=== PATIENT | female | born 1980 | race Caucasian/White ===

== ENCOUNTER 2016-11-15 12:28 | Emergency (ER) | payer OTHER ==
[~2016-11-15] VITALS: Ht 167.6 cm; Wt 80.6 kg
[~2016-11-15 12:28] MED LIST: BENZ1GEL11 TOPICAL; FLUO0.05 TOPICAL; KETO2AER3; OMEP40CA2 PO; ZYRT10CA PO
[2016-11-15 12:31] VITALS: BP 131/87; PULSE 100; RESP 16; TEMP 98; O2SAT 98
--- NOTE | 2016-11-15 13:07 | PD ---
HPI Chief Complaint: GI Complaint Time Seen by Provider: 12:40 Travel History International Travel<30 days: No Contact w/Intl Traveler<30days: No Traveled to known affect area: No History of Present Illness HPI 36-year-old female complains of abdominal pain with nausea vomiting diarrhea. Patient states that she started feeling lightheaded with nausea and about 2 weeks ago. Patient started having reflux symptoms subsequently with acid reflux and tobacco throat. Patient started having burning pain on the lower abdomen area for the past 5 days. Patient states that she has some reflux symptoms with burning sensation up to the chest area. Patient started having low back pain and poor appetite for the past 5 days. Patient denies any dysuria or frequency. Patient denies any vaginal discharge or bleeding. Patient denies fever chills. Patient status post tubal ligation, cholecystectomy and appendectomy. Patient states that she has history of abnormal Pap smear a year ago. PFSH Past Medical History Hx Anticoagulant Therapy: No Chemotherapy: No Cerebrovascular Accident: No Diabetes: No Diminished Hearing: No GERD: Yes Respiratory: No ?: Not LMP: 11/05/2016 Past Surgical History Appendectomy: Yes Section: Yes (x 4) Cholecystectomy: Yes Hysterectomy: No Social History Alcohol Use: Yes (occas) Tobacco Use: Yes (1ppd) Substance Use: No Allergies-Medications (Allergen,Severity, Reaction): Coded Allergies: Cefzil (Verified Allergy, Intermediate, vomiting, 11/15/16) Erythromycin (Verified Allergy, Intermediate, vomiting, 11/15/16) Ibuprofen (Verified Allergy, Intermediate, hives, 11/15/16) Penicillin (Verified Allergy, Intermediate, hives, 11/15/16) Sulfa (Verified Allergy, Unknown, skin ulcers, 11/15/16) Reported Meds & Prescriptions Reported Meds & Active Scripts Active No Active Prescriptions or Reported Medications Review of Systems General / Constitutional: No: Fever Eyes: No: Visual changes HENT: No: Headaches Cardiovascular: No: Chest Pain or Discomfort Respiratory: No: Shortness of Breath Gastrointestinal: Positive: Nausea, Vomiting, Diarrhea, Abdominal Pain Genitourinary: No: Dysuria Musculoskeletal: No: Pain Skin: No Rash Neurologic: No: Weakness Psychiatric: No: Depression Endocrine: No: Polydipsia Hematologic/Lymphatic: No: Easy Bruising Physical Exam Narrative GENERAL: Well-nourished, well-developed patient. SKIN: Focused skin assessment warm/dry. HEAD: Normocephalic. EYES: No scleral icterus. No injection or drainage. NECK: Supple, trachea midline. No JVD or lymphadenopathy. CARDIOVASCULAR: Regular rate and rhythm without murmurs, gallops, or rubs. RESPIRATORY: Breath sounds equal bilaterally. No accessory muscle use. GASTROINTESTINAL: Abdomen soft, nondistended. Patient has mild tenderness on palpation lower abdomen. No rebound tenderness. No mass. MUSCULOSKELETAL: No cyanosis, or edema. BACK: Nontender without obvious deformity. No CVA tenderness. Data Data Last Documented VS Vital Signs Date Time Temp Pulse Resp B/P Pulse Ox O2 Delivery O2 Flow Rate FiO2 11/15/16 13:25 98 Room Air 11/15/16 12:31 98.0 100 16 131/87 Orders Ed Urine Pregnancytest Poc (11/15/16 12:56) Complete Blood Count With Diff (11/15/16 12:56) Comprehensive Metabolic Panel (11/15/16 12:56) Prothrombin Time / Inr (Pt) (11/15/16 12:56) Act Partial Throm Time (Ptt) (11/15/16 12:56) Lipase (11/15/16 12:56) Urinalysis - C+S If Indicated (11/15/16 12:56) Ct Abd/Pel W Iv Contrast(Rout) (11/15/16 12:56) Iv Access Insert/Monitor (11/15/16 12:56) Ecg Monitoring (11/15/16 12:56) Oximetry (11/15/16 12:56) Iohexol 350 Inj (Omnipaque 350 Inj) (11/15/16 13:33) Labs Laboratory Tests Test 11/15/16 13:05 White Blood Count 13.6 TH/MM3 Red Blood Count 4.63 MIL/MM3 Hemoglobin 14.3 GM/DL Hematocrit 41.0 % Mean Corpuscular Volume 88.6 FL Mean Corpuscular Hemoglobin 31.0 PG Mean Corpuscular Hemoglobin 35.0 % Concent Red Cell Distribution Width 12.0 % Platelet Count 293 TH/MM3 Mean Platelet Volume 9.5 FL Neutrophils (%) (Auto) 64.0 % Lymphocytes (%) (Auto) 27.4 % Monocytes (%) (Auto) 6.7 % Eosinophils (%) (Auto) 1.4 % Basophils (%) (Auto) 0.5 % Neutrophils # (Auto) 8.8 TH/MM3 Lymphocytes # (Auto) 3.7 TH/MM3 Monocytes # (Auto) 0.9 TH/MM3 Eosinophils # (Auto) 0.2 TH/MM3 Basophils # (Auto) 0.1 TH/MM3 CBC Comment DIFF FINAL Differential Comment Prothrombin Time 11.4 SEC Prothromb Time International 1.0 RATIO Ratio Activated Partial 31.7 SEC Thromboplast Time Urine Collection Type CLEAN CATCH Urine Color YELLOW Urine Turbidity CLEAR Urine pH 6.0 Urine Specific [place] 1.010 Urine Protein NEG mg/dL Urine Glucose (UA) NEG mg/dL Urine Ketones TRACE mg/dL Urine Occult Blood NEG Urine Nitrite NEG Urine Bilirubin NEG Urine Leukocyte Esterase NEG Urine WBC 0-2 /hpf Urine Squamous Epithelial 6-8 /hpf Cells Microscopic Urinalysis Comment CULT NOT INDICATED Urine Collection Time 13:05 Sodium Level 139 MEQ/L Potassium Level 3.7 MEQ/L Chloride Level 107 MEQ/L Carbon Dioxide Level 24.7 MEQ/L Anion Gap 7 MEQ/L Blood Urea Nitrogen 10 MG/DL Creatinine 0.76 MG/DL Estimat Glomerular Filtration 87 ML/MIN Rate Random Glucose 85 MG/DL Calcium Level 8.8 MG/DL Total Bilirubin 0.8 MG/DL Aspartate Amino Transf 16 U/L (AST/SGOT) Alanine Aminotransferase 27 U/L (ALT/SGPT) Alkaline Phosphatase 69 U/L Total Protein 7.8 GM/DL Albumin 3.8 GM/DL Lipase 159 U/L [facility] Medical Decision Making Medical Screen Exam Complete: Yes Emergency Medical Condition: Yes Interpretation(s) 1350 p.m. CBC WBC 13.6. Normal differential. CMP within normal limit. UA is negative. CT scan abdomen pelvis negative acute pathology. Differential Diagnosis Differential diagnosis including gastroenteritis, gastritis, PUD, pancreatitis, colitis, UTI, pyelonephritis, cervicitis. Narrative Course 36-year-old female with low abdominal pain, nausea vomiting diarrhea. Diagnosis Primary Impression: Abdominal pain Qualified Code: R10.30 - Lower abdominal pain Additional Impression: Gastroenteritis Patient Instructions: General Instructions Additional Instructions: Take medication as needed. Follow-up with personal physician and GI specialist. Return if persistent problem or worse. Med/Other Pt SpecificInfo: Prescription(s) given Scripts Dicyclomine (Bentyl)10 Mg Cap10 Mg PO TID PRN (PAIN SCALE 1 TO 10) #21 CAP Ref 0 Prov:Nicola Barriga MD 11/15/16 Ondansetron Odt (Zofran Odt)4 Mg Tab4 Mg SL Q6HR PRN (Nausea/Vomiting) #10 TAB Prov:Nicola Barriga MD 11/15/16 Pantoprazole (Protonix)20 Mg Tab20 Mg PO DAILY #30 TAB Prov:Nicola Barriga MD 11/15/16 Disposition: 01 DISCHARGE HOME Condition: Stable Nicola Barriga MD November 15, 2016 13:07
[2016-11-15 13:14] LABS: BLOOD, URINE NEG (NEG); GLUCOSE,URINE NEG (NEG); KETONE, URINE TRACE mg/dL (NEG); NITRITE,URINE NEG (NEG)
[2016-11-15 13:21] LABS: AUTOMATED NEUTROPHIL # 8.8 TH/MM3 (1.8-7.7); BASOPHIL # 0.1 TH/MM3 (0-0.2); BASOPHIL % 0.5 % (0.0-2.0); EOSINOPHIL # 0.2 TH/MM3 (0-0.4); EOSINOPHIL % 1.4 % (0.0-4.0); HEMO FLAGS DIFF FINAL; LYMPH % 27.4 % (9.0-44.0); LYMPHOCYTE # 3.7 TH/MM3 (1.0-4.8); MEAN CELL VOLUME 88.6 FL (80.0-100.0); MONO % 6.7 % (0.0-8.0); PLATELET COUNT 293 TH/MM3 (150-450); RED BLOOD COUNT 4.63 MIL/MM3 (4.00-5.30); WHITE BLOOD COUNT 13.6 TH/MM3 (4.0-11.0)
[2016-11-15 13:22] LABS: COMMENT (UR) CULT NOT INDICATED; CULTURE IF INDICATED CULT NOT INDICATED; METHOD OF COLLECTION CLEAN CATCH; URINE COLOR YELLOW (YELLW/STRAW); WBC, URINE 0-2 /hpf (0-5)
[2016-11-15 13:24] LABS: CHLORIDE 107 MEQ/L (98-107); POTASSIUM 3.7 MEQ/L (3.5-5.1); SODIUM (NA) 139 MEQ/L (136-145)
[2016-11-15 13:25] VITALS: O2SAT 98
[2016-11-15 13:28] LABS: ANION GAP 7 MEQ/L (5-15); BICARBONATE 24.7 MEQ/L (21.0-32.0); BLOOD UREA NITROGEN 10 MG/DL (7-18)
[2016-11-15 13:29] LABS: APTT (PATIENT) 31.7 SEC (24.3-30.1); PROTHROMBIN TIME - PATIENT 11.4 SEC (9.8-11.6)
[2016-11-15 13:31] LABS: ALT (GPT) 27 U/L (10-53); AST (GOT) 16 U/L (15-37); GLOMERULAR FILTRATION RATE 87 ML/MIN (>89)
[2016-11-15 13:33] LABS: TOTAL BILIRUBIN ADULT 0.8 MG/DL (0.2-1.0)
[2016-11-15] MEDS ORDERED: IOHEXOL 350 MG/ML 10 ML VIAL (for RAD DIAG) IV ONE (13:33)
[2016-11-15 13:34] LABS: ALKALINE PHOSPHATASE 69 U/L (45-117)
--- NOTE | 2016-11-15 13:44 | RADHPO ---
EXAM DATE/TIME: 11/15/2016 13:10 [facility] COMPARISON: No previous studies available for comparison. INDICATIONS : Abdominal pain and left lower back pain with nausea, vomiting, burning sensation for 2 days IV CONTRAST: 96 cc Omnipaque 300 (iohexol) IV ORAL CONTRAST: No oral contrast ingested. RADIATION DOSE: 14.62 CTDIvol (mGy) MEDICAL HISTORY : Gastroesophageal reflux disease. SURGICAL HISTORY : Appendectomy. Cholecystectomy. section. ENCOUNTER: Initial ACUITY: 2 days PAIN SCALE: 7/10 LOCATION: Bilateral abdomen TECHNIQUE: Volumetric scanning of the abdomen and pelvis was performed. Using automated exposure control and ad justment of the mA and/or kV according to patient size, radiation dose was kept as low as reasonably achievable to obtain optimal diagnostic quality images. FINDINGS: LOWER LUNGS: The visualized lower lungs are clear. LIVER: Homogeneous density without lesion. There is no dilation of the biliary tree. There has been prior cholecystectomy with clips in the gallbladder fossa. SPLEEN: Normal size without lesion. PANCREAS: No definite abnormality is appreciated. Pancreatic tail appears blunted. KIDNEYS: Normal in size and shape. There is no mass, stone or hydronephrosis. ADRENAL GLANDS: Within normal limits. VASCULAR: There is no aortic aneurysm. There are engorged left parametrial vessels. BOWEL/MESENTERY: The stomach, small bowel, and colon demonstrate no acute abnormality. There is no free intraperitone al air. There is trace free fluid in the pelvis. There are are clips at the base of the cecum are rel ated to prior appendectomy. ABDOMINAL WALL: Within normal limits. RETROPERITONEUM: There is no lymphadenopathy. BLADDER: No wall thickening or mass. REPRODUCTIVE: Within normal limits. INGUINAL: There is no lymphadenopathy or hernia. MUSCULOSKELETAL: No acute osseous abnormality is identified. CONCLUSION: No acute finding is identified to explain the clinical symptoms. There is trace free fluid in the pel vis. Although nonspecific this is most likely physiologic. Rj Carmen MD on November 15, 2016 at 13:37 Board Certified Radiologist. This report was verified electronically.
[2016-11-15] MEDS ORDERED: DICY10 PO (13:57)
[2016-11-15] MEDS ORDERED: ZOFR4TAB3 SL (13:57)
[2016-11-15] MEDS ORDERED: PANT20 PO (13:57)
[2016-11-15 14:04] VITALS: BP 113/60
== END 2016-11-15 14:12 | disposition home or self-care (01) ==
LOC: PHED 12:28
DX: K52.9 Noninfective gastroenteritis and colitis, unspecified (principal); F17.210 Nicotine dependence, cigarettes, uncomplicated
CPT/HCPCS: 74177; 80053; 81001; 83690; 84703; 85025; 85610; 85730; 99285; Q9967

== ENCOUNTER 2017-02-09 19:19 | Emergency (ER) | payer OTHER ==
[~2017-02-09 19:19] MED LIST changes: -BENZ1GEL11 TOPICAL; +DICY10 PO; -FLUO0.05 TOPICAL; -KETO2AER3; -OMEP40CA2 PO; +PANT20 PO; +ZOFR4TAB3 SL; -ZYRT10CA PO
[2017-02-09 19:21] VITALS: BP 134/83; PULSE 100; RESP 20; TEMP 98; O2SAT 100
--- NOTE | 2017-02-09 19:42 | PD ---
HPI Chief Complaint: Complaint Time Seen by Provider: 19:34 Travel History International Travel<30 days: No Contact w/Intl Traveler<30days: No Traveled to known affect area: No History of Present Illness HPI This 36-year-old female is complaining of frequency of urination and 8 with urination. She's had some bilateral back pain and some suprapubic discomfort. She says there is no chance of . Is not aware of fever or chills. There is been no vomiting. She has a history of frequent urinary tract infection PFSH Past Medical History Hx Anticoagulant Therapy: No Chemotherapy: No Cerebrovascular Accident: No Diabetes: No Diminished Hearing: No GERD: Yes Respiratory: No Past Surgical History Appendectomy: Yes Section: Yes (x 4) Cholecystectomy: Yes Hysterectomy: No Social History Alcohol Use: Yes (occas) Tobacco Use: Yes (1ppd) Substance Use: No Allergies-Medications (Allergen,Severity, Reaction): Coded Allergies: cefprozil (Unverified Allergy, Intermediate, vomiting, 02/09/17) erythromycin base (Unverified Allergy, Intermediate, vomiting, 02/09/17) ibuprofen (Unverified Allergy, Intermediate, hives, 02/09/17) penicillin G (Unverified Allergy, Intermediate, hives, 02/09/17) Sulfa (Sulfonamide Antibiotics) (Unverified Allergy, Unknown, skin ulcers , 02/09/17) Reported Meds & Prescriptions Reported Meds & Active Scripts Active No Active Prescriptions or Reported Medications Review of Systems General / Constitutional: No: Fever, Chills Eyes: No: Diploplia, Blurred Vision HENT: No: Headaches, Vertigo Cardiovascular: No: Chest Pain or Discomfort, Palpitations Respiratory: No: Cough, Shortness of Breath Gastrointestinal: No: Nausea Genitourinary: Positive: Frequency, Dysuria Musculoskeletal: No: Myalgias Skin: No Rash Neurologic: No: Weakness Physical Exam Narrative GENERAL: Well-developed female SKIN: Focused skin assessment warm/dry. HEAD: Atraumatic. Normocephalic. EYES: Pupils equal and round. No scleral icterus. No injection or drainage. ENT: No nasal bleeding or discharge. Mucous membranes pink and moist. NECK: Trachea midline. No JVD. CARDIOVASCULAR: Regular rate and rhythm. No murmur appreciated. RESPIRATORY: No accessory muscle use. Clear to auscultation. Breath sounds equal bilaterally. GASTROINTESTINAL: Abdomen soft, non-tender, nondistended. Hepatic and splenic margins not palpable. There is some mild bilateral CVA tenderness MUSCULOSKELETAL: No obvious deformities. No clubbing. No cyanosis. No edema. NEUROLOGICAL: Awake and alert. No obvious cranial nerve deficits. Motor grossly within normal limits. Normal speech. PSYCHIATRIC: Appropriate mood and affect; insight and judgment normal. Data Data Last Documented VS Vital Signs Date Time Temp Pulse Resp B/P (MAP) Pulse Ox O2 Delivery O2 Flow Rate FiO2 02/09/17 19:21 98.0 100 20 134/83 (100) 100 Orders Orders Urinalysis - C+S If Indicated (02/09/17 19:39) Acetamin-Hydrocod 325-5 Mg ([place] 5-325 (02/09/17 19:45) Urine Culture (02/09/17 19:40) Labs Laboratory Tests Test 02/09/17 19:40 Urine Color YELLOW Urine Turbidity MOD Urine pH 6.0 Urine Specific [place] 1.026 Urine Protein 30 mg/dL Urine Glucose (UA) NEG mg/dL Urine Ketones NEG mg/dL Urine Occult Blood MOD Urine Nitrite NEG Urine Bilirubin NEG Urine Leukocyte Esterase SMALL Urine RBC 25-49 /hpf Urine WBC 50-99 /hpf Urine WBC Clumps OCC Urine Squamous Epithelial Cells 0-5 /hpf Urine Amorphous Sediment SMALL Urine Bacteria OCC /hpf Urine Mucus FEW /lpf Microscopic Urinalysis Comment CULTURE INDICATED MDM Medical Decision Making Medical Screen Exam Complete: Yes Emergency Medical Condition: Yes Medical Record Reviewed: Yes Differential Diagnosis Differential includes UTI, nonspecific abdominal pain, renal colic Narrative Course Urinalysis shows 50-99 white cells. Impression is UTI. She'll be started on Cipro Diagnosis Primary Impression: UTI (urinary tract infection) Qualified Codes: N39.0 - Urinary tract infection, site not specified Scripts Hydrocodone-Acetaminophen (Lortab) 7.5-325 Mg Tab 1 TAB PO Q4H Y for PAIN for 14 Days, TAB 0 Refills Prov: Elie Celis MD 02/09/17 Phenazopyridine (Pyridium) 100 Mg Tab 100 MG PO Q8H Y for DYSURIA for 3 Days, TAB 0 Refills Prov: Elie Celis MD 02/09/17 Ciprofloxacin (Ciprofloxacin) 500 Mg Tab 500 MG PO BID for Infection for 14 Days, TAB 0 Refills Prov: Elie Celis MD 02/09/17 Disposition: 01 DISCHARGE HOME Condition: Stable Elie Celis MD Feb 09, 2017 19:41
[2017-02-09] MEDS ORDERED: ACETAMINOPHEN/HYDROcodone 325 MG/5 MG TAB PO ONE (19:45)
[2017-02-09 20:00] LABS: BLOOD, URINE MOD (NEG); GLUCOSE,URINE NEG (NEG); KETONE, URINE NEG (NEG); NITRITE,URINE NEG (NEG)
[2017-02-09 20:17] LABS: URINE COLOR YELLOW (YELLW/STRAW)
[2017-02-09 20:18] LABS: MUCUS URINE FEW /lpf (OCC); SQUAMOUS EPITHELIAL CELL URINE 0-5 /hpf (0-5)
[2017-02-09 20:19] LABS: BACTERIA, URINE OCC /hpf; COMMENT (UR) CULTURE INDICATED; CULTURE IF INDICATED CULTURE INDICATED
[2017-02-09] MEDS ORDERED: PHEN0.4T PO (20:29)
[2017-02-09] MEDS ORDERED: CIPR500T2 PO (20:29)
[2017-02-09] MEDS ORDERED: PHENAZOPYRIDINE HCL 200 MG TAB PO ONE (20:30)
[2017-02-09] MEDS ORDERED: HYDR-3534 PO (20:30)
[2017-02-09] MEDS ORDERED: CIPROFLOXACIN 500 MG TAB PO ONE (20:30)
[2017-02-09 20:46] VITALS: BP 120/72
== END 2017-02-09 20:47 | disposition home or self-care (01) ==
LOC: PHED 19:19
DX: N39.0 Urinary tract infection, site not specified (principal); B95.7 Other staphylococcus as the cause of diseases classified elsewhere; F17.200 Nicotine dependence, unspecified, uncomplicated
CPT/HCPCS: 81001; 86403; 87077; 87086; 87186; 99284